=== PATIENT | female | born 1950 | race Caucasian/White ===

== ENCOUNTER → 2023-02-21 12:08 | Outpatient (CLI) | payer MEDICARE, SELFPAY ==
--- NOTE | 2023-02-21 12:12 | DI.MRI.S_ITS ---
BREAST MRI OF BOTH BREASTS: 02/21/2023 CLINICAL: Abnormal Mammogram. PROCEDURE: MR BREAST BI WO/W CON INDICATIONS: ABNORMAL MAMMOGRAM TECHNIQUE: The patient was placed prone in a dedicated breast imaging coil. Precontrast axial STIR and 3D FLASH without fat saturation sequences were obtained. Both before and after bolus injection of contrast, sequential 1-minute axial 3D FLASH with fat saturation sequences for 3 time points, with subtraction images and maximum intensity projections (MIP's) generated. Delayed sagittal FLASH images with fat saturation were also obtained. CONTRAST: 20 cc ProHance IV contrast. Computer-aided detection, including computer algorithm analysis of MRI image data for lesion detection and characterization, pharmacokinetic analysis, with further physician review for interpretation, was performed. COMPARISON: None available. FINDINGS: Image quality: Excellent. There is mild background parenchymal enhancement. Right breast: No mass or suspicious enhancement. A few enhancing foci in the lateral and inferior lateral breast middle depth noted. Left breast: 1:00 o'clock anterior depth enhancing mass measuring 1.5 x 0.8 x 0.8 cm, (/ and ). Kinetic analysis demonstrates slow initial phase and persistent delayed phase. Irregular margins. 6:00 o'clock middle depth enhancing mass measuring 0.9 x 0.7 x 0.4 cm, (15/64 and ). Kinetic analysis demonstrates slow initial phase and persistent delayed phase. 3:00 o'clock middle depth enhancing mass measuring 0.9 x 0.7 x 0.5 cm, (15/ and ). Kinetic analysis demonstrates slow initial phase and persistent delayed phase. A few additional enhancing foci noted. Miscellaneous: No enlarged lymph nodes. IMPRESSION: INCOMPLETE: NEEDS ADDITIONAL IMAGING EVALUATION 1. Right breast: No mass or suspicious enhancement. 2. Left breast: 1:00 o'clock anterior depth enhancing mass measuring 1.5 cm is indeterminate. 3. Left breast: 6:00 o'clock middle depth enhancing mass measuring 0.9 cm is indeterminate. 4. Left breast: 3:00 o'clock middle depth enhancing mass measuring 0.9 cm is indeterminate. 5. Lymph nodes: No enlarged lymph nodes. BIRADS 0. Recommend second-look left breast ultrasound. Mammogram is also recommended if prior imaging cannot be obtained. COMMENT: The imaging literature indicates that a negative contrast breast MRI examination has a high sensitivity and a moderate specificity for detecting and excluding invasive carcinomas to a detection threshold of 3-5 mm; nonetheless, appropriate clinical and mammographic follow-up are recommended. MRI is not sensitive for detecting DCIS (ductal carcinoma in situ) and may not detect large invasive neoplasms that show only minimal enhancement such as mucinous carcinoma. If there are suspicious calcifications or clinically worrisome palpable masses, then biopsy should still be considered. Invasive neoplasms can be hidden by co-existent and benign enhancement caused by mastitis, hormone therapy effects, radiation therapy, , and recent biopsy or surgery. False positive examinations can occur in a number of circumstances, including breasts that have recently been subject to invasive procedures and those that contain atypical ductal hyperplasia, hormonally stimulated glandular tissue, fat necrosis, or radial scars. Dictated by: Thuan Cespedse M.D. on 02/21/2023 at 16:37 This exam was interpreted at Station ID: [id number]. Electronically Signed By: Thuan Cespedes M.D. slc/:02/21/2023 16:53:53 ACR BI-RADS Category 0: Incomplete [id number]
== END ==
PROVIDERS: PCP Family Medicine; Referring Provider Family Medicine; Visit Provider Family Medicine
DX: R92.8 Other abnormal and inconclusive findings on diagnostic imaging of breast (principal); N63.21 Unspecified lump in the left breast, upper outer quadrant; N63.25 Unspecified lump in the left breast, overlapping quadrants
CPT/HCPCS: 77049; A9579